=== PATIENT | male | born 2000 | race African-American/Black ===

== ENCOUNTER 2018-06-16 16:57 | Emergency (ER) | payer SELFPAY, OTHER ==
[2018-06-16] MEDS: DICYCLOMINE HCL 10 MG CAPSULE PO (17:29)
[2018-06-16] MEDS: ONDANSETRON PF 4 MG/2 ML VIAL. IV (17:29)
[2018-06-16] MEDS: KETOROLAC 30 MG/ML INJ. IV (17:29)
[2018-06-16 17:30] LABS: ADD MAN DIFF? NO
[2018-06-16 17:31] LABS: BASO % 0 % (0-3); EOS # 0.2 x10^3/uL (0.0-0.7); EOS % 2 % (0-3); HEMATOCRIT 46.7 % (39.0-53.0); HEMOGLOBIN 16.4 g/dL (13.0-17.5); LYMPH # 1.8 x10^3/uL (1.0-4.8); LYMPH % 20 % (24-48); MEAN CORPUSCULAR HEMOGLOBIN 30 pg (25-35); MEAN CORPUSCULAR HGB CONC 35 g/dL (31-37); MEAN CORPUSCULAR VOLUME 85 fL (79-100); MONO # 0.8 x10^3/uL (0.0-1.1); MONO % 9 % (0-9); NEUT # 5.9 x10^3uL (1.8-7.7); NEUT % 69 % (31-73); PLATELET COUNT 278 x10^3/uL (140-400); RED BLOOD COUNT 5.47 x10^6/uL (4.30-5.70); RED CELL DISTRIBUTION WIDTH 13.1 % (11.5-14.5); WHITE BLOOD COUNT 8.7 x10^3/uL (4.0-11.0)
[2018-06-16 17:39] LABS: ANION GAP 8 (6-14); BLOOD UREA NITROGEN 10 mg/dL (8-26); BUN/CREATININE RATIO 13 (6-20); CALCIUM 8.9 mg/dL (8.5-10.1); CARBON DIOXIDE 29 mmol/L (21-32); CHLORIDE 104 mmol/L (98-107); CREATININE 0.8 mg/dL (0.7-1.3); GFR 150.7; GLUCOSE 94 mg/dL (70-99); POTASSIUM 3.8 mmol/L (3.5-5.1); SODIUM 141 mmol/L (136-145)
[2018-06-16 17:40] LABS: ETHANOL < 10 mg/dL (0-10)
[2018-06-16 17:45] LABS: ALBUMIN/GLOBULIN RATIO 1.1 (1.0-1.7); ALK PHOS 74 U/L (46-116); ALT (SGPT) 20 U/L (16-63); AST (SGOT) 16 U/L (15-37); LIPASE 90 U/L (73-393); TOTAL BILIRUBIN 0.4 mg/dL (0.2-1.0); TOTAL PROTEIN 7.8 g/dL (6.4-8.2)
[2018-06-16 18:48] LABS: BILIRUBIN,URINE NEGATIVE (NEG); CLARITY,URINE CLEAR; COLOR,URINE YELLOW; GLUCOSE,URINE NEGATIVE (NEG); NITRITE,URINE NEGATIVE (NEG); PH,URINE 6.5; PROTEIN,URINE NEGATIVE (NEG-TRACE); UROBILINOGEN,URINE 0.2 mg/dL (0.2 mg/dL)
[2018-06-16 18:53] LABS: BARBITURATES NEG (NEG); BENZODIAZEPINES NEG (NEG); CANNABINOIDS POS (NEG); COCAINE NEG (NEG); METHADONE NEG (NEG); OPIATES NEG (NEG); PHENCYCLIDINE NEG (NEG)
[2018-06-16 18:54] LABS: AMPHETAMINE/METHAMPHETAMINE NEG (NEG); BACTERIA,URINE 0 /HPF (0-FEW); ETHANOL, URINE NEG (NEG); RBC,URINE 0 /HPF (0-2); SQUAMOUS EPITHELIAL CELL,UR OCC /LPF; WBC,URINE RARE /HPF (0-4)
== END 2018-06-16 19:31 | disposition home or self-care (01) ==
LOC: ER 16:57
DX: R10.84 Generalized abdominal pain (principal); G89.29 Other chronic pain; M54.5 Low back pain; F17.210 Nicotine dependence, cigarettes, uncomplicated
CPT/HCPCS: 36415; 76700; 80053; 80307; 81001; 83690; 85025; 96374; 96375; 99285-25; G0480; J1885; J2405

== ENCOUNTER 2019-11-17 13:35 | Emergency (ER) | payer SELFPAY ==
[~2019-11-17] VITALS: Ht 162.6 cm; Wt 59.0 kg
[~2019-11-17 13:35] MED LIST: DICY20TA3 PO
[2019-11-17 14:00] VITALS: BP 131/71
--- NOTE | 2019-11-17 15:10 | PHYS DOC ---
Past Medical History Past Medical History: No Pertinent History Past Surgical History: Other Additional Past Surgical Histo: WISDOM TOOTH EXTRACTION 11/2015 Alcohol Use: None Drug Use: Marijuana Adult General Chief Complaint Chief Complaint: SEXUALLY TRANSMITTED DISEASE HPI HPI Patient is a 19 year old male who presents with burning with urination and stools. Patient states she's also had some white or clear discharge from his rectum and he noticed some blood with wiping his rectum. He noticed office 1 week ago after he had anal intercourse. And states he also has some lower mid abdomen pain that comes and goes. Review of Systems Review of Systems GI: Rectal pain. Drainage from rectum after anal sexual intercourse. Low mid abdominal pain, denies nausea, vomiting, bloody stools or diarrhea [] : dysuria or denies hematuria [] All other systems were reviewed and found to be within normal limits, except as documented in this note. Current Medications Current Medications Current Medications Medications (Trade) Dose Ordered Sig/Giselle Start Time Stop Time Status Last Admin Dose Admin Azithromycin (Zithromax) 1,000 mg 1X ONCE 11/17/19 15:15 11/17/19 15:16 DC Ceftriaxone Sodium (Rocephin Im) 250 mg 1X ONCE 11/17/19 15:15 11/17/19 15:16 DC Ondansetron HCl (Zofran Odt) 4 mg 1X ONCE 11/17/19 15:15 11/17/19 15:16 DC Allergies Allergies Allergies Coded Allergies Type Severity Reaction Last Updated Verified No Known Drug Allergies 04/19/14 No Physical Exam Physical Exam Constitutional: Well developed, well nourished, no acute distress, non-toxic appearance. [] HENT: Normocephalic, atraumatic, bilateral external ears normal, oropharynx moist, no oral exudates, nose normal. [] Eyes: PERRLA, EOMI, conjunctiva normal, no discharge. [] Neck: Normal range of motion, no tenderness, supple, no stridor. [] Cardiovascular:Heart rate regular rhythm, no murmur [] Lungs & Thorax: Bilateral breath sounds clear to auscultation [] Abdomen: Bowel sounds normal, soft, no tenderness, no masses, no pulsatile masses. [] Skin: Warm, dry, no erythema, no rash. [] Back: No tenderness, no CVA tenderness. [] Extremities: No tenderness, no cyanosis, no clubbing, ROM intact, no edema. [] Neurologic: Alert and oriented X 3, normal motor function, normal sensory function, no focal deficits noted. [] Psychologic: Affect normal, judgement normal, mood normal. Normal Physical Exam[] Current Patient Data Vital Signs Vital Signs Date Time Temp Pulse Resp B/P (MAP) Pulse Ox O2 Delivery O2 Flow Rate FiO2 11/17/19 14:00 97.4 65 18 131/71 (91) 98 Room Air 97.4 Lab Values Laboratory Tests Test 11/17/19 14:00 Urine Color Yellow Urine Clarity Clear Urine pH 5.5 Urine Specific [place] >=1.030 Urine Protein Negative mg/dL (NEG-TRACE) Urine Glucose (UA) Negative mg/dL (NEG) Urine Ketones (Stick) Trace mg/dL (NEG) Urine Blood Negative (NEG) Urine Nitrite Negative (NEG) Urine Bilirubin Small (NEG) Urine Urobilinogen Dipstick 0.2 mg/dL (0.2 mg/dL) Urine Leukocyte Esterase Negative (NEG) Urine RBC 0 /HPF (0-2) Urine WBC 1-4 /HPF (0-4) Urine Squamous Epithelial Cells Occ /LPF Urine Bacteria 0 /HPF (0-FEW) Urine Mucus Mod /LPF EKG EKG [] Radiology/Procedures Radiology/Procedures [] Course & Med Decision Making Course & Med Decision Making Denies fever, nausea, vomiting, diarrhea, constipation, chest pain, shortness of air, dizziness, headache, numbness or tingling, visual changes. Abdomen is soft and nontender. States he has pain to the outside of the rectum. Rectal exam done with Katherine MARTINEZ in the room and No hemorrhoids seen. A fissure to 12:00 on the outside of the rectum is seen which is where the patient states that the pain is located. No drainage seen. States there is no blood in the toilet. Patient is treated for sexually transmitted diseases today in the ED. He is told that he will be contacting 48 hours if they're positive. Urinalysis is negative for infection. Denies any penile discharge. Skin pink warm and dry. Ambulatory with a steady gait. Mucus Membranes are moist. Speaks in full clear sentences. I have spoken to Dr Reaves about this patient. She states to have him follow up with surgeon and give anusol. She states that no blood work or radiology is needed. Rectal Exam: Normal tone, No mass, No Fistula, Positive control, Fissure to 12'o clock on rectum, no Drainage, No blood Dragkristi Disclaimer Dragon Disclaimer This electronic medical record was generated, in whole or in part, using a voice recognition dictation system. Departure Departure Impression: Primary Impression: Anal burning Additional Impressions: Rectal discharge Anal fissure Disposition: HOME, SELF-CARE Condition: STABLE Referrals: NO PCP (PCP) DAT LACY MD Patient Instructions: Anal Fissure, Adult, Sexually Transmitted Disease Additional Instructions: Follow up with primary care physician or Dr Lacy especially if symptoms persists. You will be called in 48 hours only if results are positive. Scripts Hydrocortisone (ANUSOL-HC) 30 Gm Cream..g. 1 ESTEBAN TP BID for 12 Days, #30 GM 0 Refills Put to the outside of rectum. Prov: LUISANA THOMAS APRN 11/17/19 Problem Qualifiers LUISANA THOMAS APRN Nov 17, 2019 15:10
[2019-11-17 15:14] LABS: BACTERIA,URINE 0 /HPF (0-FEW); BILIRUBIN,URINE SMALL (NEG); CLARITY,URINE CLEAR; COLOR,URINE YELLOW; NITRITE,URINE NEGATIVE (NEG); PH,URINE 5.5; PROTEIN,URINE NEGATIVE (NEG-TRACE); RBC,URINE 0 /HPF (0-2); SQUAMOUS EPITHELIAL CELL,UR OCC /LPF; UROBILINOGEN,URINE 0.2 mg/dL (0.2 mg/dL)
[2019-11-17] MEDS ORDERED: AZITHROMYCIN 250 MG TABLET. PO ONE (15:15)
[2019-11-17] MEDS ORDERED: ONDANSETRON ODT 4 MG TAB.RAPDIS. PO ONE (15:15)
[2019-11-17] MEDS ORDERED: cefTRIAXone IM 250 MG VIAL IM ONE (15:15)
[2019-11-17] MEDS ORDERED: HYDR30CR61 TP (15:34)
== END 2019-11-17 15:50 | disposition home or self-care (01) ==
LOC: ER 13:35
DX: K62.89 Other specified diseases of anus and rectum (principal); K60.2 Anal fissure, unspecified; F12.90 Cannabis use, unspecified, uncomplicated; Z98.890 Other specified postprocedural states
CPT/HCPCS: 81001; 87491; 87591; 96372; 99284; J0696; Q0144; Q0162